=== PATIENT | male | born 1965 | race Hispanic/Latino ===

== ENCOUNTER 2017-02-25 21:08 | Emergency (ER) | payer OTHER ==
[2017-02-26] MEDS ORDERED: TORADOL IM ONE (04:44)
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
[2017-02-26 06:15] VITALS: BP 119/78
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
== END 2017-02-26 06:53 | disposition home or self-care (01) ==
LOC: ED 21:08
DX: S80.02XA Contusion of left knee, initial encounter (principal); K40.90 Unilateral inguinal hernia, without obstruction or gangrene, not specified as recurrent; E11.9 Type 2 diabetes mellitus without complications; V49.49XA Driver injured in collision with other motor vehicles in traffic accident, initial encounter; Y92.488 Other paved roadways as the place of occurrence of the external cause; Y93.89 Activity, other specified; Y99.9 Unspecified external cause status
CPT/HCPCS: 70450; 72100; 72125; 73030; 73562; 96372; 99284; J1885